=== PATIENT | male | born 1960 | race Caucasian/White ===

== ENCOUNTER 2020-11-07 21:02 | Inpatient (IN) | payer OTHER ==
[~2020-11-07] VITALS: Ht 172.7 cm; Wt 70.3 kg
--- NOTE | 2020-11-07 21:15 | NUR ---
Patient unable to recall home medication names and dosages at this time.
[2020-11-07] MEDS ORDERED: blood pressure meds (21:21)
--- NOTE | 2020-11-07 21:30 | NUR ---
Patient is resting in bed, A&Ox4, no apparent distress noted.
[2020-11-07 22:21] LABS: BASOPHILS # (AUTO) 0.1 K/uL (0.0-8.0); BASOPHILS % (AUTO) 0.5 % (0.0-2.0); EOSINOPHILS # (AUTO) 0.4 K/uL (0.0-0.7); EOSINOPHILS % (AUTO) 2.7 % (0.0-7.0); HEMATOCRIT 44.5 % (36.7-47.1); HEMOGLOBIN 15.1 g/dL (12.5-16.3); LYMPHOCYTES # (AUTO) 1.9 K/uL (20.0-40.0); LYMPHOCYTES % (AUTO) 14.1 % (20.5-51.5); MEAN CORPUSCULAR HEMOGLOBIN 30.8 uug (23.8-33.4); MEAN CORPUSCULAR HGB CONC 34 g/dL (32.5-36.3); MONOCYTES % (AUTO) 7.6 % (0.0-11.0); NEUTROPHILS % (AUTO) 75.1 % (38.5-71.5); PLATELET COUNT (AUTO) 287 K/uL (152-348); RED BLOOD CELL COUNT(AUTO) 4.89 MIL/uL (4.06-5.63); WHITE BLOOD COUNT (AUTO) 13.3 K/uL (3.6-10.2)
[2020-11-07 22:26] LABS: POTASSIUM 3.7 mmol/L (3.5-5.1)
[2020-11-07 22:32] LABS: BILIRUBIN,DIRECT 0.1 mg/dL (0.0-0.2); BILIRUBIN,TOTAL 0.3 mg/dL (0.2-1.0); TOTAL PROTEIN, SERUM 7.3 g/dL (6.4-8.2)
--- NOTE | 2020-11-07 23:00 | NUR ---
Patient resting in room, no distress noted.
--- NOTE | 2020-11-07 23:47 | NUR ---
INTERNATIONAL RELATIONS TEACHER IN ROOM TO TAKE PATIENT FOR CT and X-RAY
--- NOTE | 2020-11-08 00:05 | NUR ---
Patient brought back from radiology department.
[2020-11-08] MEDS ORDERED: NICARDIPINE IN NS 20 MG/200 ML PIGGYBACK IV ONE (00:15)
[2020-11-08] MEDS ORDERED: DEXAMETHASONE SOD PHOSPHATE 4 MG INJ IV ONE (00:15)
--- NOTE | 2020-11-08 00:16 | NUR ---
Called [facility], spoke to Phyllis. Will fax Facesheet and ct result to
[2020-11-08] MEDS ORDERED: NICARDIPINE IN NS 200 ML IV ONE (00:18)
[2020-11-08] MEDS ORDERED: DEXAMETHASONE SOD PHOSPHATE 4 MG INJ ONE (00:33)
--- NOTE | 2020-11-08 00:39 | NUR ---
Called [facility] and spoke to Aviva charge nurse who requested facesheet and ct scan result to be faxed to .
--- NOTE | 2020-11-08 00:48 | NUR ---
Aviva from [facility] called back and states they are unable to accept patient at this time due to no urgent intervention required at this time.
--- NOTE | 2020-11-08 01:00 | NUR ---
Patient is sleeping in room, no distress noted at this time.
--- NOTE | 2020-11-08 02:28 | NUR ---
Patient is resting in room, no distress is noted at this time.
--- NOTE | 2020-11-08 02:41 | NUR ---
No beds available at [facility] per insurance social work. Will admit patient here. Called [facility] panel. Waiting for Angely Kern to call back.
--- NOTE | 2020-11-08 02:44 | NUR ---
Called med-surg telemetry floor. Spoke with KAPIL TORRES. Patient will be placed into 302 with Angely MAN as accepting RADIO DISPATCHER. Pending call back from nurse that will be taking care of the patient to take report.
--- NOTE | 2020-11-08 02:57 | NUR ---
KAPIL TORRES CALLED BACK TO NOTIFY PATIENT WILL BE CHANGED TO ROOM 209 and that KAPIL ALICEA will call back for report.
[2020-11-08] MEDS ORDERED: ACETAMINOPHEN 650 MG SUPP.RECT RC PRN (03:00)
[2020-11-08] MEDS ORDERED: ONDANSETRON 4 MG/2 ML VIAL IV PRN (03:00)
[2020-11-08] MEDS ORDERED: ACETAMINOPHEN 325 MG TABLET PO PRN (03:00)
--- NOTE | 2020-11-08 03:34 | NUR ---
KAPIL ALICEA received report on patient. Patient is being moved upstairs to room 209 via [employer].
--- NOTE | 2020-11-08 03:45 | NUR ---
60 year old male brought to Tele unit 2nd floor from Er via gurney accompanied by staff nurse with Dx of recent stroke and gen weakness.Patient ALOx3 , cooperative, able to follow commands. No acute distress noted.ON RA saturating 99 %.Denies pain at this time. IV on right FA 20 g patent and intact.No s/s of infiltration.Body assessment done.No skin breakdown.VSS.Safety measures in place.Call light with in reach.Will continue to monitor.
[2020-11-08 04:00] VITALS: BP 107/72
--- NOTE | 2020-11-08 07:30 | NUR ---
RECEIVED PATIENT IN BED WITH EYES CLOSED, NO SS OF PAIN OR DISTRESS. SR ON MONITOR
--- NOTE | 2020-11-08 08:52 | NUR ---
SEEN BY DR FORREST AND SAID CONTINUE PLAN OF CARE AND START PT, OT, SPEECH, NO BLOOD THINNER FOR NOW.
[2020-11-08 11:42] VITALS: BP 114/73
[2020-11-08 15:08] VITALS: BP 128/75
[2020-11-08] MEDS ORDERED: ATORVASTATIN 40 MG TABLET PO SCH (21:00)
--- NOTE | 2020-11-08 21:00 | NUR ---
Patient alert x4 ,aware that he's going to be transferred today to [facility].Spoke to Piyush at [facility] .Report given. [facility] in [facility] condition.All belongings and discharged instruction given and signed by patient.
[2020-11-08 21:19] VITALS: BP 152/91
== END 2020-11-08 21:00 | disposition short-term general hospital (02) | DRG 55 ==
LOC: ER 21:02 → TELE 11-08 03:41 → TELE3 11-08 18:21
PROVIDERS: ADMIT Internal Medicine; ATTEND Internal Medicine
DX: S06.340A Traumatic hemorrhage of right cerebrum without loss of consciousness, initial encounter (principal); G81.94 Hemiplegia, unspecified affecting left nondominant side; G93.6 Cerebral edema; Z20.822 Contact with and (suspected) exposure to COVID-19; W19.XXXA Unspecified fall, initial encounter; Y93.9 Activity, unspecified; Y92.009 Unspecified place in unspecified non-institutional (private) residence as the place of occurrence of the external cause; Z86.73 Personal history of transient ischemic attack (TIA), and cerebral infarction without residual deficits; R40.2362 Coma scale, best motor response, obeys commands, at arrival to emergency department; R40.2142 Coma scale, eyes open, spontaneous, at arrival to emergency department; R40.2252 Coma scale, best verbal response, oriented, at arrival to emergency department
CPT/HCPCS: 36415; 70030-TC; 70450; 71045; 83690; 85025; 93005; A4663; G0378; J1100; U0003

== ENCOUNTER 2023-07-18 08:26 | Emergency (ER) | payer OTHER ==
[~2023-07-18] VITALS: Ht 175.3 cm; Wt 74.8 kg
[~2023-07-18 08:26] MED LIST: blood pressure meds
[2023-07-18] MEDS ORDERED: LAMO150T2 PO (08:43)
[2023-07-18] MEDS ORDERED: AMLO10TA4 PO (08:43)
[2023-07-18] MEDS ORDERED: LISI-782 PO (08:43)
[2023-07-18] MEDS ORDERED: OLAN2.5T3 PO (08:43)
[2023-07-18] MEDS ORDERED: OXCA600T5 PO (08:43)
[2023-07-18] MEDS ORDERED: ATOR10TA PO (08:43)
[2023-07-18] MEDS ORDERED: AMLO2.5T2 PO (08:43)
[2023-07-18] MEDS ORDERED: MORPHINE SULFATE 2 MG/1 ML DISP.SYRIN IV ONE (08:45)
[2023-07-18] MEDS ORDERED: ONDANSETRON 4 MG/2 ML VIAL IV ONE (08:45)
[2023-07-18] MEDS ORDERED: MORPHINE SULFATE 4 MG/1 ML DISP.SYRIN ONE (08:57)
[2023-07-18] MEDS ORDERED: ONDANSETRON 4 MG/2 ML VIAL ONE (08:57)
[2023-07-18 10:02] LABS: CALCIUM 8.8 mg/dL (8.5-10.1); CARBON DIOXIDE 21 mmol/L (21-32); CHLORIDE 107 mmol/L (98-107); CREATININE 1.1 mg/dL (0.6-1.3); GLUCOSE 119 mg/dL (74-106); POTASSIUM 4.8 mmol/L (3.5-5.1); SODIUM SERUM 135 mmol/L (136-145); UREA NITROGEN, BLOOD 12 mg/dL (7-18)
[2023-07-18 10:11] LABS: ALANINE AMINOTRANSFERASE 42 U/L (16-63); ALKALINE PHOSPHATASE 123 U/L (50-136); ASPARTATE AMINOTRANSFERASE 80 U/L (15-37); BILIRUBIN,DIRECT 0.2 mg/dL (0.0-0.2); BILIRUBIN,TOTAL 0.6 mg/dL (0.2-1.0); LIPASE 101 U/L (73-393)
[2023-07-18 10:30] VITALS: O2SAT 97
[2023-07-18 10:36] LABS: BASOPHILS # (AUTO) 0.1 K/UL (0.0-0.2); BASOPHILS % (AUTO) 0.8 % (0.0-2.0); EOSINOPHILS # (AUTO) 0.1 K/uL (0.0-0.7); EOSINOPHILS % (AUTO) 0.8 % (0.0-7.0); HEMATOCRIT 42.9 % (36.7-47.1); HEMOGLOBIN 14.4 g/dL (12.5-16.3); LYMPHOCYTES # (AUTO) 0.9 K/uL (0.8-4.8); LYMPHOCYTES % (AUTO) 7.5 % (20.5-51.5); MEAN CORPUSCULAR HGB CONC 34 g/dL (32.5-36.3); MEAN CORPUSCULAR VOLUME 92.6 fL (73.0-96.2); MONOCYTES % (AUTO) 8.1 % (0.0-11.0); NEUTROPHILS # (AUTO) 10.4 K/uL (1.8-8.9); NEUTROPHILS % (AUTO) 82.8 % (38.5-71.5); PLATELET COUNT (AUTO) 224 K/uL (152-348); RED BLOOD CELL COUNT(AUTO) 4.63 MIL/uL (4.06-5.63); RED CELL DISTRIBUTION WIDTH 13.8 % (12.1-16.2); WHITE BLOOD COUNT (AUTO) 12.6 K/uL (3.6-10.2)
[2023-07-18 11:00] LABS: DIFFERENTIAL COMMENT N
[2023-07-18 12:07] LABS: *BILIRUBIN,URIN NEGATIVE (NEGATIVE); *CLARITY,URINE SLIGHTLY CLOUDY (CLEAR); *COLOR,URINE YELLOW (YELLOW); *KETONES,URINE NEGATIVE (NEGATIVE); *PROTEIN,URINE 1+ (NEGATIVE); LEUKOCYTE ESTERASE ,URINE 1+ (NEGATIVE); NITRITE, URINE NEGATIVE (NEGATIVE); UGLUCOSE NEGATIVE (NEGATIVE)
[2023-07-18 12:12] LABS: *BLOOD, URINE TRACE (NEGATIVE)
[2023-07-18 12:39] LABS: BACTERIA,URINE MANY /HPF (NONE SEEN); RBC,URINE 0-3 /HPF (0-3); SQUAMOUS EPITHELIAL CELL,UR FEW /HPF (NONE SEEN); WBC,URINE 20-50 /HPF (0-3)
== END 2023-07-18 15:50 | disposition short-term general hospital (02) ==
LOC: ER 08:26
DX: N20.2 Calculus of kidney with calculus of ureter (principal); N13.30 Unspecified hydronephrosis; R07.89 Other chest pain; I10 Essential (primary) hypertension; Z79.899 Other long term (current) drug therapy
CPT/HCPCS: 99285; 74176; 96374; 71045; 96375; 80076; 80048; 81001; 83690; 85025; 84484; 36415; 93005; J2405; J2270; A4606; A4663

== ENCOUNTER 2023-08-02 01:52 | Emergency (ER) | payer OTHER ==
[~2023-08-02] VITALS: Ht 175.3 cm; Wt 74.8 kg
[~2023-08-02 01:52] MED LIST changes: +AMLO10TA4 PO; +AMLO2.5T2 PO; +ATOR10TA PO; +LAMO150T2 PO; +LISI-782 PO; +OLAN2.5T3 PO; +OXCA600T5 PO; -blood pressure meds
[2023-08-02] MEDS ORDERED: IV NORMAL SALINE 1000 ML BAG IV ONE (02:15)
[2023-08-02] MEDS ORDERED: HYDROMORPHONE 1 MG/1 ML DISP.SYRIN IV ONE (02:15)
[2023-08-02] MEDS ORDERED: ONDANSETRON 4 MG/2 ML VIAL IV ONE (02:15)
[2023-08-02] MEDS ORDERED: ONDANSETRON 4 MG/2 ML VIAL ONE (02:43)
[2023-08-02] MEDS ORDERED: HYDROMORPHONE 1 MG/1 ML DISP.SYRIN ONE (02:44)
[2023-08-02 03:00] LABS: BASOPHILS % (AUTO) 0.5 % (0.0-2.0); EOSINOPHILS # (AUTO) 0.4 K/uL (0.0-0.7); MEAN CORPUSCULAR HEMOGLOBIN 31.7 uug (23.8-33.4); MEAN CORPUSCULAR HGB CONC 34 g/dL (32.5-36.3); MEAN CORPUSCULAR VOLUME 93.1 fL (73.0-96.2); MONOCYTES # (AUTO) 0.6 K/uL (0.1-1.30); NEUTROPHILS # (AUTO) 4.1 K/uL (1.8-8.9); NEUTROPHILS % (AUTO) 58.5 % (38.5-71.5); PLATELET COUNT (AUTO) 465 K/uL (152-348); RED BLOOD CELL COUNT(AUTO) 4.09 MIL/uL (4.06-5.63); RED CELL DISTRIBUTION WIDTH 14.5 % (12.1-16.2); WHITE BLOOD COUNT (AUTO) 7.1 K/uL (3.6-10.2)
[2023-08-02 03:03] LABS: DIFFERENTIAL COMMENT 1
[2023-08-02 03:17] LABS: ALANINE AMINOTRANSFERASE 52 U/L (16-63); ALBUMIN 2.5 g/dL (3.4-5.0); ALKALINE PHOSPHATASE 187 U/L (50-136); ASPARTATE AMINOTRANSFERASE 63 U/L (15-37); BILIRUBIN,DIRECT 0.3 mg/dL (0.0-0.2); BILIRUBIN,TOTAL 0.7 mg/dL (0.2-1.0); CALCIUM 8.6 mg/dL (8.5-10.1); CARBON DIOXIDE 28 mmol/L (21-32); CHLORIDE 104 mmol/L (98-107); CREATININE 0.8 mg/dL (0.6-1.3); GLUCOSE 112 mg/dL (74-106); POTASSIUM 3.6 mmol/L (3.5-5.1); SODIUM SERUM 138 mmol/L (136-145); TOTAL PROTEIN, SERUM 6.9 g/dL (6.4-8.2); UREA NITROGEN, BLOOD 5 mg/dL (7-18)
[2023-08-02 09:35] VITALS: O2SAT 97
== END 2023-08-02 10:04 | disposition short-term general hospital (02) ==
LOC: ER 01:55
DX: N20.2 Calculus of kidney with calculus of ureter (principal); F17.210 Nicotine dependence, cigarettes, uncomplicated; Z79.899 Other long term (current) drug therapy; Z86.73 Personal history of transient ischemic attack (TIA), and cerebral infarction without residual deficits; Z20.822 Contact with and (suspected) exposure to COVID-19
CPT/HCPCS: 99285; 74176; 96361; 96374; 71045; 96375; 87426; 80076; 80048; 85025; 84145; 85730; 87040 ×2; 84484; 93005 ×2; 83605; J2405; J1170; J7040 ×2; A4606; A4663

== ENCOUNTER 2024-11-26 19:25 | Emergency (ER) | payer MEDICAID, OTHER ==
[~2024-11-26] VITALS: Ht 177.8 cm; Wt 70.3 kg
[2024-11-26] MEDS: HYDROCODONE/APAP 5-325MG TABLET PO ONE (21:00)
[2024-11-26 21:12] LABS: BASOPHILS % (AUTO) 0.5 % (0.0-2.0); EOSINOPHILS # (AUTO) 0.1 K/uL (0.0-0.7); EOSINOPHILS % (AUTO) 0.6 % (0.0-7.0); HEMATOCRIT 46.7 % (36.7-47.1); HEMOGLOBIN 15.8 g/dL (12.5-16.3); LYMPHOCYTES % (AUTO) 10.4 % (20.5-51.5); MEAN CORPUSCULAR HEMOGLOBIN 31.4 uug (23.8-33.4); MEAN CORPUSCULAR HGB CONC 34 g/dL (32.5-36.3); MEAN CORPUSCULAR VOLUME 92.7 fL (73.0-96.2); NEUTROPHILS # (AUTO) 7.5 K/uL (1.8-8.9); NEUTROPHILS % (AUTO) 78.5 % (38.5-71.5); PLATELET COUNT (AUTO) 159 K/uL (152-348); RED BLOOD CELL COUNT(AUTO) 5.04 MIL/uL (4.06-5.63); RED CELL DISTRIBUTION WIDTH 14.3 % (12.1-16.2); WHITE BLOOD COUNT (AUTO) 9.6 K/uL (3.6-10.2)
[2024-11-26 21:19] LABS: *CLARITY,URINE CLOUDY (CLEAR); *COLOR,URINE BROWN (YELLOW); CREATININE 1.1 mg/dL (0.6-1.3); POTASSIUM 4.3 mmol/L (3.5-5.1)
[2024-11-26 21:20] LABS: *PROTEIN,URINE 2+ (NEGATIVE); PH,URINE 6.5 (5.0-8.0)
[2024-11-26 21:21] LABS: *BILIRUBIN,URIN 1+ (NEGATIVE); *BLOOD, URINE 4+ (NEGATIVE); *KETONES,URINE NEGATIVE (NEGATIVE); *UROBILINOGEN,URINE 0.2 E.U./dl (NORMAL); NITRITE, URINE NEGATIVE (NEGATIVE); UGLUCOSE NEGATIVE (NEGATIVE)
[2024-11-26 21:22] LABS: LEUKOCYTE ESTERASE ,URINE 3+ (NEGATIVE)
[2024-11-26 21:25] LABS: ALBUMIN 3.2 g/dL (3.4-5.0); BILIRUBIN,DIRECT 0.2 mg/dL (0.0-0.2); BILIRUBIN,TOTAL 0.8 mg/dL (0.2-1.0); TOTAL PROTEIN, SERUM 7.7 g/dL (6.4-8.2)
[2024-11-26] MEDS ORDERED: HYDROCODONE/APAP 5-325MG TABLET ONE (22:03)
[2024-11-26] MEDS ORDERED: ROPI2TAB26 PO (23:16)
[2024-11-26 23:51] VITALS: O2SAT 96
[2024-11-26] MEDS ORDERED: CEFTRIAXONE /D5W 50ML IVPB **ER PYXIS IV ONE (23:58)
[2024-11-27] MEDS: CEFTRIAXONE 1 G in IV DEXTROSE 5% 50 ML IV ONE (00:16)
== END 2024-11-27 02:27 | disposition short-term general hospital (02) ==
LOC: ER 19:25
DX: N39.0 Urinary tract infection, site not specified (principal); N13.2 Hydronephrosis with renal and ureteral calculous obstruction; N13.9 Obstructive and reflux uropathy, unspecified; E78.5 Hyperlipidemia, unspecified; R10.31 Right lower quadrant pain; F17.200 Nicotine dependence, unspecified, uncomplicated; I69.354 Hemiplegia and hemiparesis following cerebral infarction affecting left non-dominant side; Z79.899 Other long term (current) drug therapy
CPT/HCPCS: 99285; 74176; 80076; 80048; 81001; 85025; 87086; 36415; 96365; J0696; A4606; A4663

== ENCOUNTER 2025-03-05 23:35 | Inpatient (IN) | payer OTHER ==
[~2025-03-05] VITALS: Ht 177.8 cm; Wt 83.9 kg
[~2025-03-05 23:35] MED LIST changes: +ROPI2TAB26 PO
[2025-03-06] MEDS: IV NORMAL SALINE 1000 ML BAG IV ONE ×2 (00:24→01:28)
[2025-03-06] MEDS ORDERED: CEFTRIAXONE /D5W 50ML IVPB **ER PYXIS IV ONE (00:26)
[2025-03-06] MEDS ORDERED: IBUPROFEN 800 MG TABLET ONE (00:27)
[2025-03-06 00:28] LABS: CALCIUM 8.4 mg/dL (8.5-10.1); CREATININE 1.2 mg/dL (0.6-1.3); POTASSIUM 3.2 mmol/L (3.5-5.1)
[2025-03-06 00:31] LABS: *BILIRUBIN,URIN NEGATIVE (NEGATIVE); *CLARITY,URINE SLIGHTLY CLOUDY (CLEAR); *COLOR,URINE YELLOW (YELLOW); *KETONES,URINE NEGATIVE (NEGATIVE); *PROTEIN,URINE 1+ (NEGATIVE); BASOPHILS # (AUTO) 0.1 K/UL (0.0-0.2); BASOPHILS % (AUTO) 1.2 % (0.0-2.0); EOSINOPHILS # (AUTO) 0.3 K/uL (0.0-0.7); EOSINOPHILS % (AUTO) 3.9 % (0.0-7.0); HEMATOCRIT 46.2 % (36.7-47.1); HEMOGLOBIN 15.8 g/dL (12.5-16.3); LEUKOCYTE ESTERASE ,URINE 1+ (NEGATIVE); LYMPHOCYTES # (AUTO) 1.2 K/uL (0.8-4.8); LYMPHOCYTES % (AUTO) 18.2 % (20.5-51.5); MEAN CORPUSCULAR HEMOGLOBIN 31.6 uug (23.8-33.4); MEAN CORPUSCULAR HGB CONC 34 g/dL (32.5-36.3); MEAN CORPUSCULAR VOLUME 92.4 fL (73.0-96.2); MONOCYTES # (AUTO) 0.4 K/uL (0.1-1.30); MONOCYTES % (AUTO) 6.6 % (0.0-11.0); NEUTROPHILS # (AUTO) 4.8 K/uL (1.8-8.9); NEUTROPHILS % (AUTO) 70.1 % (38.5-71.5); NITRITE, URINE POSITIVE (NEGATIVE); PLATELET COUNT (AUTO) 129 K/uL (152-348); RED CELL DISTRIBUTION WIDTH 13.8 % (12.1-16.2); UGLUCOSE NEGATIVE (NEGATIVE); WHITE BLOOD COUNT (AUTO) 6.8 K/uL (3.6-10.2)
[2025-03-06 00:32] LABS: *BLOOD, URINE TRACE (NEGATIVE); DIFFERENTIAL COMMENT 1
[2025-03-06 00:33] LABS: ALBUMIN 3.2 g/dL (3.4-5.0); BILIRUBIN,DIRECT 0.2 mg/dL (0.0-0.2); BILIRUBIN,TOTAL 0.6 mg/dL (0.2-1.0); TOTAL PROTEIN, SERUM 7.8 g/dL (6.4-8.2)
[2025-03-06 00:37] LABS: BACTERIA,URINE MANY /HPF (NONE SEEN); RBC,URINE 0-3 /HPF (0-3); SQUAMOUS EPITHELIAL CELL,UR NONE SEEN /HPF (NONE SEEN)
[2025-03-06 00:38] LABS: MUCUS,URINE MODERATE /LPF (0-FEW)
[2025-03-06 00:39] LABS: LACTIC ACID 4.6 mmol/L (0.4-2.0)
[2025-03-06] MEDS: CEFTRIAXONE 1 G in IV DEXTROSE 5% 50 ML IV ONE (00:45)
[2025-03-06] MEDS: IBUPROFEN 800 MG TABLET PO ONE (00:46)
[2025-03-06] MEDS ORDERED: ONDANSETRON 4 MG/2 ML VIAL IV PRN (02:45)
[2025-03-06] MEDS ORDERED: hydrALAZINE HCL 20 MG/1 ML VIAL IV PRN (02:45)
[2025-03-06] MEDS ORDERED: MORPHINE SULFATE 2 MG/1 ML DISP.SYRIN IVP PRN (02:45)
[2025-03-06] MEDS: IV NS 1000 ML 1,000 ML IV SCH (04:00)
[2025-03-06 05:50] VITALS: BP 136/91; TEMP 98.2; O2SAT 98
[2025-03-06] MEDS: HEPARIN SODIUM,PORCINE 5,000 UNITS/ML VIAL SQ SCH (09:00)
[2025-03-06] MEDS ORDERED: CEFTRIAXONE 1 G in IV DEXTROSE 5% 50 ML IV SCH (09:00)
[2025-03-06] MEDS: POTASSIUM CHLORIDE 20 MEQ TAB.PRT.SR PO ONE (11:15)
[2025-03-06 11:58] VITALS: BP 125/82; TEMP 98.3; O2SAT 96
[2025-03-06] MEDS ORDERED: LEVE750T4 PO (14:00)
[2025-03-06] MEDS ORDERED: TRAM50TA2 PO (14:00)
[2025-03-06] MEDS ORDERED: ASPI-1169 PO (14:00)
[2025-03-06] MEDS ORDERED: ATOR80TA PO (14:00)
[2025-03-06] MEDS ORDERED: ROPI0.255 PO (14:00)
[2025-03-06] MEDS ORDERED: LAMO25TA5 PO (14:00)
[2025-03-06 16:00] VITALS: BP 122/74; TEMP 98.7; O2SAT 95
[2025-03-06 20:00] VITALS: BP 143/88; TEMP 98; O2SAT 99
[2025-03-06] MEDS: CEFTRIAXONE 1 G in IV DEXTROSE 5% 50 ML IV SCH (23:26)
[2025-03-07 06:56] LABS: BASOPHILS # (AUTO) 0.1 K/UL (0.0-0.2); EOSINOPHILS # (AUTO) 0.2 K/uL (0.0-0.7); EOSINOPHILS % (AUTO) 1.8 % (0.0-7.0); HEMATOCRIT 45.6 % (36.7-47.1); HEMOGLOBIN 15.3 g/dL (12.5-16.3); LYMPHOCYTES # (AUTO) 1.1 K/uL (0.8-4.8); LYMPHOCYTES % (AUTO) 10.1 % (20.5-51.5); MEAN CORPUSCULAR HEMOGLOBIN 31.3 uug (23.8-33.4); MEAN CORPUSCULAR HGB CONC 34 g/dL (32.5-36.3); MEAN CORPUSCULAR VOLUME 93.1 fL (73.0-96.2); MONOCYTES # (AUTO) 0.8 K/uL (0.1-1.30); MONOCYTES % (AUTO) 7.1 % (0.0-11.0); NEUTROPHILS # (AUTO) 8.7 K/uL (1.8-8.9); PLATELET COUNT (AUTO) 137 K/uL (152-348); RED CELL DISTRIBUTION WIDTH 13.9 % (12.1-16.2); WHITE BLOOD COUNT (AUTO) 10.9 K/uL (3.6-10.2)
[2025-03-07 07:01] LABS: DIFFERENTIAL COMMENT 1
[2025-03-07 07:19] LABS: ALBUMIN 3.1 g/dL (3.4-5.0); BILIRUBIN,DIRECT 0.3 mg/dL (0.0-0.2); BILIRUBIN,TOTAL 0.6 mg/dL (0.2-1.0); CALCIUM 8.6 mg/dL (8.5-10.1); CREATININE 0.8 mg/dL (0.6-1.3); PHOSPHOROUS 1.9 mg/dL (2.5-4.9); POTASSIUM 3.9 mmol/L (3.5-5.1); TOTAL PROTEIN, SERUM 7.6 g/dL (6.4-8.2)
[2025-03-07 11:35] VITALS: BP 120/94; TEMP 98; O2SAT 97
[2025-03-07] MEDS: NEUTRA PHOS PACKET PO ONE (15:42)
[2025-03-07 15:48] VITALS: BP 155/104; TEMP 99.9; O2SAT 95
[2025-03-07] MEDS: ACETAMINOPHEN 325 MG TABLET PO PRN (15:51)
[2025-03-07 20:25] VITALS: BP 134/87; TEMP 98.3
[2025-03-08 05:37] VITALS: BP 132/91; TEMP 98.3; O2SAT 96
[2025-03-08 06:53] LABS: BASOPHILS # (AUTO) 0.1 K/UL (0.0-0.2); BASOPHILS % (AUTO) 0.7 % (0.0-2.0); EOSINOPHILS # (AUTO) 0.1 K/uL (0.0-0.7); HEMATOCRIT 41.8 % (36.7-47.1); LYMPHOCYTES # (AUTO) 1.3 K/uL (0.8-4.8); LYMPHOCYTES % (AUTO) 10.3 % (20.5-51.5); MEAN CORPUSCULAR HEMOGLOBIN 31.1 uug (23.8-33.4); MEAN CORPUSCULAR HGB CONC 34 g/dL (32.5-36.3); MEAN CORPUSCULAR VOLUME 92.6 fL (73.0-96.2); MONOCYTES # (AUTO) 0.9 K/uL (0.1-1.30); NEUTROPHILS # (AUTO) 10.5 K/uL (1.8-8.9); PLATELET COUNT (AUTO) 132 K/uL (152-348); RED BLOOD CELL COUNT(AUTO) 4.51 MIL/uL (4.06-5.63); RED CELL DISTRIBUTION WIDTH 13.5 % (12.1-16.2); WHITE BLOOD COUNT (AUTO) 12.9 K/uL (3.6-10.2)
[2025-03-08 07:03] LABS: DIFFERENTIAL COMMENT 1
[2025-03-08 07:06] LABS: CALCIUM 7.6 mg/dL (8.5-10.1); CREATININE 0.7 mg/dL (0.6-1.3); MAGNESIUM 1.8 mg/dL (1.8-2.4); PHOSPHOROUS 2.4 mg/dL (2.5-4.9); POTASSIUM 3.4 mmol/L (3.5-5.1)
[2025-03-08 11:44] VITALS: BP 131/85; TEMP 97.8; O2SAT 95
[2025-03-08] MEDS: POTASSIUM CHLORIDE 20 MEQ TAB.PRT.SR PO ONE (12:15)
[2025-03-08] MEDS ORDERED: MEROPENEM 1 G in IV NORMAL SALINE 100 ML IV SCH (14:00)
[2025-03-08] MEDS: MEROPENEM 1 G in IV NORMAL SALINE 100 ML IV SCH (15:10)
[2025-03-08] MEDS: ASPIRIN 81 MG TAB.CHEW PO SCH (15:11)
[2025-03-08] MEDS: levETIRAcetam 500 MG TABLET PO SCH (15:11)
[2025-03-08] MEDS ORDERED: NEUTRA PHOS PACKET PO ONE (16:00)
[2025-03-08 16:25] VITALS: BP 152/96; TEMP 97.7; O2SAT 96
== END 2025-03-08 18:30 | disposition home health service (06) | DRG 463 ==
LOC: ER 23:42 → MEDSURG3 03-06 02:36
PROVIDERS: ADMIT Internal Medicine
PROC: 05HC33Z Insertion of Infusion Device into Left Basilic Vein, Percutaneous Approach (ICD-10-PCS; principal; 2025-03-06)
DX: N39.0 Urinary tract infection, site not specified (principal); E87.20 Acidosis, unspecified; D69.6 Thrombocytopenia, unspecified; E44.1 Mild protein-calorie malnutrition; E88.09 Other disorders of plasma-protein metabolism, not elsewhere classified; I69.354 Hemiplegia and hemiparesis following cerebral infarction affecting left non-dominant side; G20.A1 Parkinson's disease without dyskinesia, without mention of fluctuations; F17.210 Nicotine dependence, cigarettes, uncomplicated; B96.20 Unspecified Escherichia coli [E. coli] as the cause of diseases classified elsewhere; Z16.12 Extended spectrum beta lactamase (ESBL) resistance; G40.909 Epilepsy, unspecified, not intractable, without status epilepticus; E87.6 Hypokalemia; E78.5 Hyperlipidemia, unspecified; Z79.899 Other long term (current) drug therapy; R74.01 Elevation of levels of liver transaminase levels; Z86.03 Personal history of neoplasm of uncertain behavior
CPT/HCPCS: 36415; 70450; 71045; 83605; 83735; 84100; 85025; 85730; 87040; 87077; 87086; A4606; A4663; C1758; G0378; J0696; J1644; J2185; J7040